=== PATIENT | female | born 1935 | race Caucasian/White ===

== ENCOUNTER 2016-08-07 07:54 | Day surgery (SDC) | payer MEDICARE, OTHER ==
[2016-08-07] MEDS ORDERED: Lactated Ringers 1,000 ML IV SCH (08:30)
[2016-08-07 08:38] VITALS: BP 102/67
== END 2016-08-07 09:55 | disposition home or self-care (01) ==
LOC: FB.SDS 07:54
PROVIDERS: ATTEND Surgery
DX: Z53.8 Procedure and treatment not carried out for other reasons (principal); D17.1 Benign lipomatous neoplasm of skin and subcutaneous tissue of trunk; I10 Essential (primary) hypertension; E03.9 Hypothyroidism, unspecified; J44.9 Chronic obstructive pulmonary disease, unspecified; K21.9 Gastro-esophageal reflux disease without esophagitis; Z98.890 Other specified postprocedural states; Z90.49 Acquired absence of other specified parts of digestive tract; Z90.710 Acquired absence of both cervix and uterus; Z88.0 Allergy status to penicillin; Z91.040 Latex allergy status; Z88.8 Allergy status to other drugs, medicaments and biological substances; Z87.891 Personal history of nicotine dependence
CPT/HCPCS: J7120

== ENCOUNTER 2019-12-29 09:08 | Emergency (ER) | payer MEDICARE, OTHER ==
[2019-12-29] MEDS ORDERED: Sodium Chloride 0.9% 10 ML Syringe FLUSH PRN (09:39)
--- NOTE | 2019-12-29 11:35 | CR ---
INDICATION: Hypotension. CHEST ONE VIEW: An AP erect portable view of the chest was obtained 12/29/19 and compared with 08/03/11 and 03/11/12. The heart did not appear grossly enlarged. The aorta is tortuous with calcification in the arch and descending portion. Bipolar pacemaker leads are now seen with the ventricular lead in the area of the apex of the right ventricle. Overlying EKG leads are noted. Vertebroplasty is noted at the lower thoracic spine. Somewhat flattened diaphragm leaves raise question of COPD along with hyperaeration. A definite active infiltrate or effusion was not identified. No evidence of CHF is seen. Bilateral total shoulder arthroplasties are noted. IMPRESSION: No acute process. MTDD
[2019-12-29] MEDS ORDERED: Acetaminophen 500 MG Tab PO ONE (11:46)
--- NOTE | 2019-12-29 11:51 | EDM.PDOC ---
ED HPI GENERAL MEDICAL PROBLEM - General Chief Complaint: General Stated Complaint: FAINTING SPELL Time Seen by Provider: 12/29/19 09:35 Source of Information: Reports: Patient History Limitations: Reports: No Limitations - History of Present Illness INITIAL COMMENTS - FREE TEXT/NARRATIVE: Patient presented to the ED because of an brief unresponsive episode after coming from the [facility]. She was also bradycardic at 50's. She denies feeling dizzy, no chest pain. All her symtoms resolved upon her arrival in the ED. She also c/o 1 week h/o of cough and cold and some sputum production. There is no fever or chills. - Related Data Allergies Allergy/AdvReac Type Severity Reaction Status Date / Time brimonidine tartrate Allergy REDNESS, Verified 08/26/14 08:20 [From Alphagan P] ITHCING, SKINNER latex Allergy SKIN Verified 08/26/14 08:20 IRRITATION moxifloxacin HCl Allergy Shortness Verified 08/26/14 08:20 [From Avelox] of Breath Penicillins Allergy Hives Verified 12/26/15 11:24 BANDAIDS Allergy SKIN Uncoded 08/25/14 12:33 IRRITATION CHLORTRIMAZOLE Allergy Other Uncoded 12/26/15 11:24 Home Meds: Home Meds FLUoxetine HCl [Fluoxetine HCl] 30 mg PO DAILY 04/19/13 [History] Levothyroxine Sodium 88 mcg PO DAILY 04/19/13 [History] Sucralfate [Carafate] 1 gm PO QID 04/19/13 [History] Acetaminophen [Tylenol] 650 mg PO Q4H PRN 08/25/14 [History] Albuterol [Proair HFA] 2 puff PO Q4H PRN 08/25/14 [History] Albuterol/Ipratropium [DuoNeb 3.0-0.5 MG/3 ML] 3 ml INH Q4H PRN 08/25/14 [History] Budesonide/Formoterol [Symbicort 160-4.5 MCG] 1 puff PO BID 08/25/14 [History] Cholecalciferol (Vitamin D3) [Vitamin D3] 1,000 unit PO DAILY 08/25/14 [History] Fluticasone Propionate [Flonase] 1 spray NASBOTH BID 08/25/14 [History] Multivitamin [Multivitamins] 1 each PO DAILY 08/25/14 [History] Omeprazole [Prilosec] 20 mg PO BID 08/25/14 [History] Ranitidine [Zantac] 150 mg PO BID 08/25/14 [History] Calcium Carbonate/Vitamin D3 [Calcium 600 + Vit D Tablet] 1 tab PO DAILY 12/26/15 [History] traMADol [Ultram] 50 mg PO Q6H PRN 08/06/16 [History] Hydrocodone/Acetaminophen [Hydrocodon-Acetaminophen 5-325] 1 ea PO ASDIRECTED PRN 08/07/16 [History] Azithromycin [Zithromax] 250 mg PO DAILY #6 tablet 12/29/19 [Rx] Past Medical History HEENT History: Reports: Allergic Rhinitis, Cataract, Glaucoma Cardiovascular History: Reports: Arrhythmia, Hypertension Other Cardiovascular History: CURRENTLY NOT ON MEDS FOR HYPERTENSION. STATES HAS NOT NEEDED SINCE LOST WT. Respiratory History: Reports: Asthma, COPD Gastrointestinal History: Reports: Chronic Constipation, Colon Polyp, GERD, Other (See Below) Other Gastrointestinal History: ABD PAIN RUQ, DYSPEPSIA, FLATULENCE, CONSTIPATION Genitourinary History: Reports: None HVAC INSTRUCTOR History: Reports: Other HVAC INSTRUCTOR History: IV PARA IV VAGINAL DELIVERIES Musculoskeletal History: Reports: Arthritis, Back Pain, Chronic, Fracture, Neck Pain, Chronic, Osteoporosis Other Musculoskeletal History: ARTHROPATHY, POLYMYALGIA RHEUMATICA, DJD SHOULDER, CERVICAL DDD, LEFT SHOULDER PAIN. LEFT GREAT TOENAIL SURGERY. Neurological History: Reports: Concussion, Headaches, Chronic, Head Trauma Psychiatric History: Reports: Depression Endocrine/Metabolic History: Reports: Hypothyroidism Hematologic History: Reports: None Immunologic History: Reports: None Oncologic (Cancer) History: Reports: None Dermatologic History: Reports: None - Infectious Disease History Infectious Disease History: Reports: Chicken Pox, Measles, Mumps, Rubella, Shingles - Past Surgical History Head Surgeries/Procedures: Reports: None HEENT Surgical History: Reports: Adenoidectomy, Cataract Surgery, Tonsillectomy Cardiovascular Surgical History: Reports: None Respiratory Surgical History: Reports: None Female Surgical History: Reports: Hysterectomy, Oophorectomy Endocrine Surgical History: Reports: None Neurological Surgical History: Reports: None, Lumbar Spine Musculoskeletal Surgical History: Reports: Arthroscopic Procedure, Carpal Tunnel, ORIF, Shoulder Surgery Oncologic Surgical History: Reports: None Dermatological Surgical History: Reports: None Social & Family History - Family History Family Medical History: Noncontributory - Tobacco Use Smoking Status *Q: Unknown Ever Smoked ED ROS GENERAL - Review of Systems Review Of Systems: See Below Constitutional: Reports: No Symptoms HEENT: Reports: No Symptoms Respiratory: Reports: No Symptoms Cardiovascular: Reports: No Symptoms Endocrine: Reports: No Symptoms GI/Abdominal: Reports: No Symptoms : Reports: No Symptoms Musculoskeletal: Reports: No Symptoms Skin: Reports: No Symptoms Neurological: Reports: No Symptoms Psychiatric: Reports: No Symptoms ED EXAM, GENERAL - Physical Exam Exam: See Below Exam Limited By: No Limitations General Appearance: Alert, No Apparent Distress Eye Exam: Bilateral Eye: PERRL Ears: Normal External Exam, Normal Canal Nose: Normal Inspection, Normal Mucosa Throat/Mouth: Normal Inspection, Normal Lips, Normal Teeth Head: Atraumatic Neck: Normal Inspection, Supple, Non-Tender, Full Range of Motion Respiratory/Chest: No Respiratory Distress, Lungs Clear, Normal Breath Sounds Cardiovascular: Normal Peripheral Pulses, Regular Rate, Rhythm GI/Abdominal: Normal Bowel Sounds, Soft, Non-Tender, No Organomegaly Rectal (Female) Exam: Normal Exam, Normal Rectal Tone Back Exam: Normal Inspection, Full Range of Motion Course - Vital Signs Text/Narrative:: Labs/EKG/CXR was discussed with the patient and verbalized full understanding Tylenol 1000 mg po x1 for headache and back pain Last Recorded V/S: Last Vital Signs Temp 36.6 C 12/29/19 09:33 Pulse 70 12/29/19 09:33 Resp 18 12/29/19 09:33 BP 150/86 H 12/29/19 09:33 Pulse Ox 100 12/29/19 09:33 - Orders/Labs/Meds Orders: Active Orders 24 hr Category Date Time Status EKG Documentation Completion [RC] ASDIRECTED Care 12/29/19 09:40 Active Sodium Chloride 0.9% [Saline Flush] Med 12/29/19 09:39 Active 10 ml FLUSH ASDIRECTED PRN Saline Lock Insert [OM.PC] Routine Oth 12/29/19 09:39 Ordered EKG 12 Lead [EK] Routine Ther 12/29/19 09:39 Ordered Medication Orders Sodium Chloride (Saline Flush) 10 ml FLUSH ASDIRECTED PRN PRN Reason: Keep Vein Open Labs: Laboratory Tests 12/29/19 12/29/19 12/29/19 Range/Units 10:35 10:35 10:35 WBC 3.9 L (4.5-12.0) X10-3/uL RBC 4.44 (3.23-5.20) x10(6)uL Hgb 13.8 (11.5-15.5) g/dL Hct 41.4 (30.0-51.3) % MCV 93.2 (80-96) fL MCH 31.0 (27.7-33.6) pg MCHC 33.3 (32.2-35.4) g/dL RDW 13.1 (11.5-15.5) % Plt Count 148 (125-369) X10(3)uL MPV 8.4 (7.4-10.4) fL Neut % (Auto) 73.7 (46-82) % Lymph % (Auto) 16.3 (13-37) % Ritchie % (Auto) 8.6 (4-12) % Eos % (Auto) 1 (1.0-5.0) % Baso % (Auto) 1 (0-2) % Neut # (Auto) 3.0 (1.6-8.3) # Lymph # (Auto) 0.6 (0.6-5.0) # Ritchie # (Auto) 0.3 (0.0-1.3) # Eos # (Auto) 0.0 (0.0-0.8) # Baso # (Auto) 0.0 (0.0-0.2) # Sodium 134 L (135-145) mmol/L Potassium 3.8 (3.5-5.3) mmol/L Chloride 101 (100-110) mmol/L Carbon Dioxide 26 (21-32) mmol/L BUN 14 (7-18) mg/dL Creatinine 1.1 H (0.55-1.02) mg/dL Est Cr Clr Drug Dosing TNP Estimated GFR (MDRD) 47 L (>60) BUN/Creatinine Ratio 12.7 (9-20) Glucose 94 (80-116) mg/dL Calcium 8.6 (8.6-10.2) mg/dL Total Bilirubin 1.1 (0.1-1.3) mg/dL AST 43 H (5-25) IU/L ALT 38 H (12-36) U/L Alkaline Phosphatase 122 H (56-112) IU/L Troponin I 10.4 (4.0-60.3) pg/mL NT-Pro-B Natriuret Pep 479 H (<=450) pg/mL Total Protein 6.9 (6.0-8.0) g/dL Albumin 3.2 (3.2-4.6) g/dL Globulin 3.7 g/dL Albumin/Globulin Ratio 0.9 Meds: Medications Generic Name Dose Route Start Last Admin Trade Name Freq PRN Reason Stop Dose Admin Sodium Chloride 10 ml 12/29/19 09:39 Saline Flush FLUSH ASDIRECTED PRN Keep Vein Open Departure - Departure Time of Disposition: 12:00 Disposition: Home, Self-Care 01 Condition: Good Clinical Impression: Vasovagal syncope, Acute bronchitis - Discharge Information Prescriptions: Azithromycin [Zithromax] 250 mg PO DAILY #6 tablet Referrals: PCP,None [Primary Care Provider] - Additional Instructions: please read discharge instructions on vasovagal syncope and acute bronchtis increase oral fluids tylenol 1000 mg every 8 hours as needed for pain z-mohini as directed follow up as needed Sepsis Event Note (ED) - Evaluation Sepsis Screening Result: No Definite Risk - Focused Exam Vital Signs: Vital Signs Temp Pulse Resp BP Pulse Ox 12/29/19 09:33 36.6 C 70 18 150/86 H 100 - My Orders Last 24 Hours: My Active Orders 12/29/19 09:39 Sodium Chloride 0.9% [Saline Flush] 10 ml FLUSH ASDIRECTED PRN Saline Lock Insert [OM.PC] Routine EKG 12 Lead [EK] Routine 12/29/19 09:40 EKG Documentation Completion [RC] ASDIRECTED - Assessment/Plan Last 24 Hours: My Active Orders 12/29/19 09:39 Sodium Chloride 0.9% [Saline Flush] 10 ml FLUSH ASDIRECTED PRN Saline Lock Insert [OM.PC] Routine EKG 12 Lead [EK] Routine 12/29/19 09:40 EKG Documentation Completion [RC] ASDIRECTED
[2019-12-29 12:32] VITALS: BP 146/78; PULSE 72
== END 2019-12-29 13:14 | disposition home or self-care (01) ==
LOC: FB.ED 09:08
DX: R55 Syncope and collapse (principal); J20.9 Acute bronchitis, unspecified; I10 Essential (primary) hypertension; J44.9 Chronic obstructive pulmonary disease, unspecified; K21.9 Gastro-esophageal reflux disease without esophagitis; F32.9 Major depressive disorder, single episode, unspecified; E03.9 Hypothyroidism, unspecified; Z88.8 Allergy status to other drugs, medicaments and biological substances; Z91.040 Latex allergy status; Z88.1 Allergy status to other antibiotic agents; Z88.0 Allergy status to penicillin; Z91.048 Other nonmedicinal substance allergy status; Z79.899 Other long term (current) drug therapy
CPT/HCPCS: 36415; 71045; 80053; 83880; 84484; 85025; 93005; 99285-25; A9270-GY

== ENCOUNTER 2020-02-02 03:47 | Emergency (ER) | payer MEDICARE, OTHER ==
[2020-02-02] MEDS ORDERED: LORazepam 2 MG/ML SDV IVPUSH ONE (03:59)
[2020-02-02] MEDS ORDERED: Acetaminophen 500 MG Tab PO ONE (03:59)
[2020-02-02] MEDS ORDERED: Sodium Chloride 0.9% 10 ML Syringe FLUSH PRN (04:05)
--- NOTE | 2020-02-02 04:09 | EDM.PDOC ---
ED HPI GENERAL MEDICAL PROBLEM - General Chief Complaint: General Stated Complaint: SHAKINESS Time Seen by Provider: 02/02/20 04:01 Source of Information: Reports: Patient, EMS, Old Records, RN History Limitations: Reports: Other (mild dementia) - History of Present Illness INITIAL COMMENTS - FREE TEXT/NARRATIVE: 84 yo female from the [facility] presents via EMS after she informed the staff that she was light-headed, SOB, shaky and had a TREJO. No tx or testing was performed before sending her via EMS. Says TREJO is mild. Has a pHx of asthma, but wheezing not reported. No fever or cough. Does have nasal congestion making it hard to nose breath. Onset: Today Onset Date: 02/02/20 Duration: Minutes: Location: Reports: Head (ache), Generalized (shaky). Denies: Chest, Abdomen Quality: Reports: Ache (head) Severity: Mild Improves with: Reports: None Worsens with: Reports: Other (unknown) Context: Reports: Other (See HPI) Associated Symptoms: Reports: Confusion (chronic, mild), Headaches, Shortness of Breath (mild). Denies: Chest Pain, Cough, Diaphoresis, Fever/Chills, Nausea/Vomiting, Seizure, Syncope Treatments HIGH PRESSURE KETTLE OPERATOR: Reports: Other (see below) (none) Back Pain Score (Numeric/FACES): 5 - Related Data Allergies Allergy/AdvReac Type Severity Reaction Status Date / Time brimonidine tartrate Allergy REDNESS, Verified 08/26/14 08:20 [From Alphagan P] ITHCING, SKINNER latex Allergy SKIN Verified 08/26/14 08:20 IRRITATION moxifloxacin HCl Allergy Shortness Verified 08/26/14 08:20 [From Avelox] of Breath Penicillins Allergy Hives Verified 12/26/15 11:24 BANDAIDS Allergy SKIN Uncoded 08/25/14 12:33 IRRITATION CHLORTRIMAZOLE Allergy Other Uncoded 12/26/15 11:24 Home Meds: Home Meds Acetaminophen [Tylenol] 650 mg PO Q4H PRN 08/25/14 [History] Amiodarone [Cordarone] 100 mg PO DAILY 02/02/20 [History] Bisacodyl [Laxative Suppository] 1 supp RECTAL ASDIRECTED PRN 02/02/20 [History] Famotidine 20 mg PO BEDTIME 02/02/20 [History] Levothyroxine Sodium [Synthroid] 75 mcg PO DAILY 02/02/20 [History] Loperamide [Imodium] 2 mg PO ASDIRECTED PRN 02/02/20 [History] Mag Hydrox/Aluminum Hyd/Simeth [Mylanta Maximum Strength Liq] 10 ml PO ASDIRECTED PRN 02/02/20 [History] Magnesium Hydroxide [Milk of Magnesia] 30 ml PO ASDIRECTED PRN 02/02/20 [History] Rivaroxaban [Xarelto] 15 mg PO DAILY 02/02/20 [History] atorvaSTATin Calcium [Atorvastatin Calcium] 80 mg PO BEDTIME 02/02/20 [History] guaiFENesin [Robitussin] 10 ml PO Q4H PRN 02/02/20 [History] lisinopriL [Lisinopril] 20 mg PO DAILY #30 tablet 02/02/20 [Rx] Past Medical History HEENT History: Reports: Allergic Rhinitis, Cataract, Glaucoma Cardiovascular History: Reports: Arrhythmia, Hypertension Other Cardiovascular History: CURRENTLY NOT ON MEDS FOR HYPERTENSION. STATES HAS NOT NEEDED SINCE LOST WT. Respiratory History: Reports: Asthma, COPD Gastrointestinal History: Reports: Chronic Constipation, Colon Polyp, GERD, Other (See Below) Other Gastrointestinal History: ABD PAIN RUQ, DYSPEPSIA, FLATULENCE, CONSTIPATION Genitourinary History: Reports: None FIELD SERVICE COORDINATOR History: Reports: Other FIELD SERVICE COORDINATOR History: IV PARA IV VAGINAL DELIVERIES Musculoskeletal History: Reports: Arthritis, Back Pain, Chronic, Fracture, Neck Pain, Chronic, Osteoporosis Other Musculoskeletal History: ARTHROPATHY, POLYMYALGIA RHEUMATICA, DJD SHOULDER, CERVICAL DDD, LEFT SHOULDER PAIN. LEFT GREAT TOENAIL SURGERY. Neurological History: Reports: Concussion, Headaches, Chronic, Head Trauma Psychiatric History: Reports: Depression Endocrine/Metabolic History: Reports: Hypothyroidism Hematologic History: Reports: None Immunologic History: Reports: None Oncologic (Cancer) History: Reports: None Dermatologic History: Reports: None - Infectious Disease History Infectious Disease History: Reports: Chicken Pox, Measles, Mumps, Rubella, Shingles - Past Surgical History Head Surgeries/Procedures: Reports: None HEENT Surgical History: Reports: Adenoidectomy, Cataract Surgery, Tonsillectomy Cardiovascular Surgical History: Reports: None Respiratory Surgical History: Reports: None Female Surgical History: Reports: Hysterectomy, Oophorectomy Endocrine Surgical History: Reports: None Neurological Surgical History: Reports: None, Lumbar Spine Musculoskeletal Surgical History: Reports: Arthroscopic Procedure, Carpal Tunnel, ORIF, Shoulder Surgery Oncologic Surgical History: Reports: None Dermatological Surgical History: Reports: None Social & Family History - Family History Family Medical History: Noncontributory ED ROS GENERAL - Review of Systems Review Of Systems: See Below Constitutional: Reports: No Symptoms HEENT: Reports: No Symptoms Respiratory: Reports: Shortness of Breath (mild). Denies: Wheezing, Pleuritic Chest Pain, Cough, Sputum, Hemoptysis Cardiovascular: Reports: Lightheadedness Endocrine: Reports: No Symptoms GI/Abdominal: Reports: No Symptoms : Reports: No Symptoms Musculoskeletal: Reports: No Symptoms Skin: Reports: No Symptoms Neurological: Reports: Confusion (mild, chronic), Headache (mild), Tremors (feels shaky) Psychiatric: Reports: Anxiety (mild), Confusion (mild, chronic) ED EXAM, GENERAL - Physical Exam Exam: See Below Exam Limited By: No Limitations General Appearance: Alert, WD/WN, No Apparent Distress Eye Exam: Bilateral Eye: Normal Inspection Ears: Normal External Exam, Normal Canal, Hearing Grossly Normal, Normal TMs Ear Exam: Bilateral Ear: Auricle Normal, Canal Normal Nose: Normal Inspection, No Blood Throat/Mouth: Normal Inspection, Normal Lips, Normal Oropharynx, Normal Voice, No Airway Compromise Head: Atraumatic, Normocephalic Neck: Normal Inspection Respiratory/Chest: No Respiratory Distress, Lungs Clear, Normal Breath Sounds, No Accessory Muscle Use Cardiovascular: Regular Rate, Rhythm, No Edema GI/Abdominal: Normal Bowel Sounds, Soft, Non-Tender, No Distention Extremities: Normal Inspection, Normal Range of Motion, Non-Tender, No Pedal Edema Neurological: Alert, CN II-XII Intact, Normal Cognition, No Motor/Sensory Deficits, Confused (minimally) Psychiatric: Normal Affect, Normal Mood Skin Exam: Warm, Dry, Intact, Normal Color, No Rash Course - Vital Signs Last Recorded V/S: Last Vital Signs Temp 36.6 C 02/02/20 03:50 Pulse 61 02/02/20 03:50 Resp 18 02/02/20 03:50 BP 184/77 H 02/02/20 05:18 Pulse Ox 100 02/02/20 03:50 - Orders/Labs/Meds Orders: Active Orders 24 hr Category Date Time Status Sodium Chloride 0.9% [Saline Flush] Med 02/02/20 04:05 Active 10 ml FLUSH ASDIRECTED PRN Medication Orders Sodium Chloride (Saline Flush) 10 ml FLUSH ASDIRECTED PRN PRN Reason: IV Use Last Admin: 02/02/20 04:05 Dose: 10 ml Documented by: BEKAH Labs: Laboratory Tests 02/02/20 02/02/20 Range/Units 04:55 04:55 Sodium 133 L (135-145) mmol/L Potassium 3.6 (3.5-5.3) mmol/L Chloride 100 (100-110) mmol/L Carbon Dioxide 26 (21-32) mmol/L BUN 14 (7-18) mg/dL Creatinine 0.9 (0.55-1.02) mg/dL Est Cr Clr Drug Dosing 34.02 mL/min Estimated GFR (MDRD) 60 (>60) BUN/Creatinine Ratio 15.6 (9-20) Glucose 94 (80-116) mg/dL Calcium 8.5 L (8.6-10.2) mg/dL Troponin I 9.0 (4.0-60.3) pg/mL Meds: Medications Generic Name Dose Route Start Last Admin Trade Name Freq PRN Reason Stop Dose Admin Sodium Chloride 10 ml 02/02/20 04:05 02/02/20 04:05 Saline Flush FLUSH 10 ml ASDIRECTED PRN Administration IV Use Discontinued Medications Generic Name Dose Route Start Last Admin Trade Name Freq PRN Reason Stop Dose Admin Acetaminophen 1,000 mg 02/02/20 03:59 02/02/20 04:05 Tylenol Extra Strength PO 02/02/20 04:00 1,000 mg ONETIME ONE Administration Lisinopril 20 mg 02/02/20 05:11 02/02/20 05:18 Prinivil PO 02/02/20 05:12 20 mg ONETIME ONE Administration Lorazepam 0.5 mg 02/02/20 03:59 02/02/20 04:05 Ativan IVPUSH 02/02/20 04:00 0.5 mg ONETIME ONE Administration Oxymetazoline HCl 0.5 ml 02/02/20 04:36 02/02/20 04:58 Afrin Original 0.05% Nasal [place] ASHLY 02/02/20 04:37 2 spray ONETIME ONE Administration - Re-Assessments/Exams Free Text/Narrative Re-Assessment/Exam: 02/02/20 05:20 TREJO gone after acetaminophen. Departure - Departure Time of Disposition: 05:30 Disposition: Home, Self-Care 01 Condition: Fair Clinical Impression: Nasal congestion HTN (hypertension) Qualifiers: Hypertension type: unspecified Qualified Code(s): I10 - Essential (primary) hypertension - Discharge Information *PRESCRIPTION DRUG MONITORING PROGRAM REVIEWED*: Not Applicable *COPY OF PRESCRIPTION DRUG MONITORING REPORT IN PATIENT ARVIN: Not Applicable Instructions: Hypertension, Adult, [id number] Referrals: PCP,None [Primary Care Provider] - Forms: ED Department Discharge Additional Instructions: Give Lisinopril 20 mg every morning starting 02/02. Give oxymetolazone nasal spray in each nostril every 12 hrs for up to 3 days for nasal congestion. Give acetaminophen as needed for headache( 1000 mg every 6 hrs). Follow up with her provider within the week for a blood pressure recheck. Sepsis Event Note (ED) - Focused Exam Vital Signs: Vital Signs Temp Pulse Resp BP BP Pulse Ox 02/02/20 05:18 184/77 H 02/02/20 03:50 36.6 C 61 18 196/67 H 100 - My Orders Last 24 Hours: My Active Orders 02/02/20 04:05 Sodium Chloride 0.9% [Saline Flush] 10 ml FLUSH ASDIRECTED PRN - Assessment/Plan Last 24 Hours: My Active Orders 02/02/20 04:05 Sodium Chloride 0.9% [Saline Flush] 10 ml FLUSH ASDIRECTED PRN
[2020-02-02 04:22] VITALS: PULSE 61
[2020-02-02] MEDS ORDERED: Oxymetazoline 0.05% Nasal Spray 30 ML Bottle NAS ONE (04:34)
[2020-02-02] MEDS ORDERED: Oxymetazoline 0.05% Nasal Spray 15 ML Bottle NAS ONE (04:36)
[2020-02-02] MEDS ORDERED: Lisinopril 10 MG Tab PO ONE (05:11)
[2020-02-02 05:19] VITALS: BP 184/77
== END 2020-02-02 05:45 | disposition home or self-care (01) ==
LOC: FB.ED 03:47
DX: R09.81 Nasal congestion (principal); I10 Essential (primary) hypertension; J44.9 Chronic obstructive pulmonary disease, unspecified; K21.9 Gastro-esophageal reflux disease without esophagitis; F32.9 Major depressive disorder, single episode, unspecified; E03.9 Hypothyroidism, unspecified; Z79.01 Long term (current) use of anticoagulants; Z91.040 Latex allergy status; Z88.1 Allergy status to other antibiotic agents; Z88.0 Allergy status to penicillin; Z88.8 Allergy status to other drugs, medicaments and biological substances; Z79.899 Other long term (current) drug therapy; Z91.048 Other nonmedicinal substance allergy status
CPT/HCPCS: 36415; 80048; 84484; 96374; 99284; A9270; J2060; 99283

== ENCOUNTER 2020-11-11 18:22 | Emergency (ER) | payer MEDICARE, OTHER ==
--- NOTE | 2020-11-11 18:49 | EDM.PDOC ---
<Claudia Huang - Last Filed: 11/11/20 18:44> ED HPI GENERAL MEDICAL PROBLEM - General Stated Complaint: SOB Time Seen by Provider: 11/11/20 18:30 Source of Information: Reports: [facility] Records - History of Present Illness INITIAL COMMENTS - FREE TEXT/NARRATIVE: pt comes from assisted living , with confusion, per EMS , there was concerns this afternoon by staff at assisted living staff for increased confusion and elevated SBP/ no other concerns were reported, pt has dementia on her records , she appears comfortable here and denies any pain / acute resp complaints or any specific concerns, she is alert and follow simple commands , oriented only to self. - Related Data Allergies Allergy/AdvReac Type Severity Reaction Status Date / Time brimonidine tartrate Allergy REDNESS, Verified 08/26/14 08:20 [From Alphagan P] ITHCING, SKINNER latex Allergy SKIN Verified 08/26/14 08:20 IRRITATION moxifloxacin HCl Allergy Shortness Verified 08/26/14 08:20 [From Avelox] of Breath Penicillins Allergy Hives Verified 12/26/15 11:24 BANDAIDS Allergy SKIN Uncoded 08/25/14 12:33 IRRITATION CHLORTRIMAZOLE Allergy Other Uncoded 12/26/15 11:24 Home Meds: Home Meds Acetaminophen [Tylenol] 650 mg PO Q4H PRN 08/25/14 [History] Amiodarone [Cordarone] 100 mg PO DAILY 02/02/20 [History] Bisacodyl [Laxative Suppository] 1 supp RECTAL ASDIRECTED PRN 02/02/20 [History] Famotidine 20 mg PO BEDTIME 02/02/20 [History] Levothyroxine Sodium [Synthroid] 75 mcg PO DAILY 02/02/20 [History] Loperamide [Imodium] 2 mg PO ASDIRECTED PRN 02/02/20 [History] Mag Hydrox/Aluminum Hyd/Simeth [Mylanta Maximum Strength Liq] 10 ml PO ASDIRECTED PRN 02/02/20 [History] Magnesium Hydroxide [Milk of Magnesia] 30 ml PO ASDIRECTED PRN 02/02/20 [History] Rivaroxaban [Xarelto] 15 mg PO DAILY 02/02/20 [History] atorvaSTATin Calcium [Atorvastatin Calcium] 80 mg PO BEDTIME 02/02/20 [History] guaiFENesin [Robitussin] 10 ml PO Q4H PRN 02/02/20 [History] lisinopriL [Lisinopril] 20 mg PO DAILY #30 tablet 02/02/20 [Rx] Past Medical History HEENT History: Reports: Allergic Rhinitis, Cataract, Glaucoma Cardiovascular History: Reports: Arrhythmia, Hypertension Other Cardiovascular History: CURRENTLY NOT ON MEDS FOR HYPERTENSION. STATES HAS NOT NEEDED SINCE LOST WT. Respiratory History: Reports: Asthma, COPD Gastrointestinal History: Reports: Chronic Constipation, Colon Polyp, GERD, Other (See Below) Other Gastrointestinal History: ABD PAIN RUQ, DYSPEPSIA, FLATULENCE, CONSTIPATION Genitourinary History: Reports: None COPY OPERATOR History: Reports: Other COPY OPERATOR History: IV PARA IV VAGINAL DELIVERIES Musculoskeletal History: Reports: Arthritis, Back Pain, Chronic, Fracture, Neck Pain, Chronic, Osteoporosis Other Musculoskeletal History: ARTHROPATHY, POLYMYALGIA RHEUMATICA, DJD SHOULDER, CERVICAL DDD, LEFT SHOULDER PAIN. LEFT GREAT TOENAIL SURGERY. Neurological History: Reports: Concussion, Headaches, Chronic, Head Trauma Psychiatric History: Reports: Depression Endocrine/Metabolic History: Reports: Hypothyroidism Hematologic History: Reports: None Immunologic History: Reports: None Oncologic (Cancer) History: Reports: None Dermatologic History: Reports: None - Infectious Disease History Infectious Disease History: Reports: Chicken Pox, Measles, Mumps, Rubella, Shingles - Past Surgical History Head Surgeries/Procedures: Reports: None HEENT Surgical History: Reports: Adenoidectomy, Cataract Surgery, Tonsillectomy Cardiovascular Surgical History: Reports: None Respiratory Surgical History: Reports: None Female Surgical History: Reports: Hysterectomy, Oophorectomy Endocrine Surgical History: Reports: None Neurological Surgical History: Reports: None, Lumbar Spine Musculoskeletal Surgical History: Reports: Arthroscopic Procedure, Carpal Tunnel, ORIF, Shoulder Surgery Oncologic Surgical History: Reports: None Dermatological Surgical History: Reports: None Social & Family History - Family History Family Medical History: No Pertinent Family History - Caffeine Use Caffeine Use: Reports: Soda ED ROS GENERAL - Review of Systems Review Of Systems: Unable To Obtain Reason Not Obtained: dementia Constitutional: Reports: No Symptoms Respiratory: Denies: Shortness of Breath Cardiovascular: Denies: Chest Pain GI/Abdominal: Denies: Abdominal Pain ED EXAM, GENERAL - Physical Exam Exam: See Below Exam Limited By: Altered Mental Status General Appearance: Alert Eye Exam: Bilateral Eye: Normal Inspection Nose: Normal Inspection Throat/Mouth: Normal Inspection, Normal Oropharynx Head: Atraumatic, Normocephalic Neck: Normal Inspection, Supple, Non-Tender, Full Range of Motion Respiratory/Chest: No Respiratory Distress, Lungs Clear, Normal Breath Sounds Cardiovascular: Normal Peripheral Pulses, Irregularly Irregular GI/Abdominal: Normal Bowel Sounds, Soft, Non-Tender Back Exam: Normal Inspection Extremities: Normal Inspection. No: Pedal Edema Neurological: Alert, No Motor/Sensory Deficits Psychiatric: Flat Affect Skin Exam: Warm, No Rash Course - Vital Signs Text/Narrative:: pt care will be handed to Dr Keller at time of shift change at 7pm , pending labs at this point are CBC , UA, CMP, EKG /Covid . pt BP is at 199 systolic, 0.1 mg Catapres was provided. Departure - Departure Disposition: DC[facility] Clinical Impression: Hypertension, uncontrolled, Elevated liver function tests Dementia Qualifiers: Dementia type: unspecified type Dementia behavioral disturbance: without behavioral disturbance Qualified Code(s): F03.90 - Unspecified dementia without behavioral disturbance - Discharge Information Instructions: Hypertension, Adult, [id number], Dementia, [id number] Referrals: PCP,None [Primary Care Provider] - Additional Instructions: All of the patient's blood tests were reassuring except for some elevated liver function tests. She also appeared to be somewhat dehydrated and I feel that this may be due to some mild heat exposure. Her urine test showed no evidence of infection. Her chest x-ray was normal. The CAT scan of her head showed no bleeding and no fractures. The CAT scan of her abdomen and pelvis showed no acute problem. She did appear to be somewhat constipated discussing this with Lisset, the patient's daughter and power of workers compensation defense attorney, the patient apparently has had episodes like this in the past and they were related to her blood pressure being difficult to control and orthostatic hypotension. There is really nothing to do about this except for trying to make sure that she starts slowly and is also able to spend time sitting with her legs elevated. She should avoid any heat exposure for the next few days. You should make sure she drinks plenty of fluids. You can contact her primary provider if she has nothing for constipation. Back to the emergency department for unrelenting vomiting, high fever or any other concerning signs or symptoms. <Peter Keller Last Filed: 11/12/20 01:20> ED HPI GENERAL MEDICAL PROBLEM - General Source of Information: Reports: Patient, [facility] Records, Provider History Limitations: Reports: Other (Patient confused but this is her baseline.) Course - Vital Signs Last Recorded V/S: Last Vital Signs Temp 36.6 C 11/11/20 18:22 Pulse 92 11/12/20 00:09 Resp 14 11/12/20 00:09 BP 168/87 H 11/12/20 00:09 Pulse Ox 98 11/12/20 00:09 - Orders/Labs/Meds Orders: Active Orders 24 hr Category Date Time Status EKG Documentation Completion [RC] ASDIRECTED Care 11/11/20 18:55 Active Urinary Catheter Assessment [RC] QSHIFT Care 11/11/20 19:34 Active Urinary Catheter Insertion [Insert Urinary Catheter] [ Care 11/11/20 19:45 Ordered OM.PC] Q24H Abdomen Pelvis w Cont [CT] Stat Exams 11/11/20 21:10 Taken Chest 1V Frontal [CR] Stat Exams 11/11/20 19:53 Taken Head wo Cont [CT] Stat Exams 11/11/20 19:53 Taken Sodium Chloride 0.9% [Saline Flush] Med 11/11/20 21:10 Active 10 ml FLUSH ASDIRECTED PRN Peripheral IV Insertion Adult [OM.PC] Routine Oth 11/11/20 21:10 Ordered EKG 12 Lead [EK] Routine Ther 11/11/20 18:55 Ordered Medication Orders Sodium Chloride (Sodium Chloride 0.9% 10 Ml Syringe) 10 ml FLUSH ASDIRECTED PRN PRN Reason: Keep Vein Open Last Admin: 11/11/20 23:11 Dose: 10 ml Documented by: GAURAV Labs: Laboratory Tests 11/11/20 11/11/20 11/11/20 Range/Units 19:15 19:15 19:15 WBC 4.1 (3.0-10.3) x10-3/uL RBC 3.65 (3.60-5.20) x10(6)uL Hgb 12.0 (11.4-15.5) g/dL Hct 35.7 (34.2-48.2) % MCV 97.9 (76.7-100.5) fL MCH 33.0 (23.9-33.9) pg MCHC 33.7 (31.9-34.8) g/dL RDW 13.8 (12.3-16.5) % Plt Count 178 (151-488) x10(3)uL MPV 8.9 (7.1-12.4) fL Neut % (Auto) 68.8 (30.8-76.2) % Lymph % (Auto) 16.8 L (18.4-52.1) % Hodgeman % (Auto) 12.1 (4.4-15.7) % Eos % (Auto) 1.5 (0.6-8.1) % Baso % (Auto) 0.8 (0.2-1.5) % Neut # (Auto) 2.8 (1.5-6.3) x10-3/uL Lymph # (Auto) 0.7 L (1.0-4.4) x10-3/uL Hodgeman # (Auto) 0.5 (0.3-1.0) x10-3/uL Eos # (Auto) 0.1 (0.0-0.8) x10-3/uL Baso # (Auto) 0.0 (0.0-0.1) x10-3/uL Sodium 131 L (135-145) mmol/L Potassium 4.0 (3.5-5.3) mmol/L Chloride 95 L D (100-110) mmol/L Carbon Dioxide 23 (21-32) mmol/L BUN 21 H (7-18) mg/dL Creatinine 1.0 (0.55-1.02) mg/dL Est Cr Clr Drug Dosing 30.08 mL/min Estimated GFR (MDRD) 53 L (>60) BUN/Creatinine Ratio 21.0 H (9-20) Glucose 94 (80-116) mg/dL Calcium 7.8 L (8.6-10.2) mg/dL Magnesium (1.8-2.5) mg/dL Total Bilirubin 0.6 (0.1-1.3) mg/dL AST 87 H D (5-25) IU/L ALT 106 H D (12-36) U/L Alkaline Phosphatase 494 H (56-112) IU/L Troponin I 13.0 (4.0-60.3) pg/mL Total Protein 7.4 (6.0-8.0) g/dL Albumin 3.0 L (3.2-4.6) g/dL Globulin 4.4 g/dL Albumin/Globulin Ratio 0.7 Urine Color (YELLOW) Urine Appearance (CLEAR) Urine pH (5.0-6.5) Ur Specific Dunlo (1.010-1.025) Urine Protein (NEGATIVE) mg/dL Urine Glucose (UA) (NORMAL) mg/dL Urine Ketones (NEGATIVE) mg/dL Urine Occult Blood (NEGATIVE) Urine Nitrite (NEGATIVE) Urine Bilirubin (NEGATIVE) Urine Urobilinogen (NEGATIVE) mg/dL Ur Leukocyte Esterase (NEGATIVE) Urine RBC (0-5) Urine WBC (0-5) Ur Squamous Epith Cells (NS,R,O) Urine Bacteria (NS) SARS-CoV-2 RNA (KEYON) (NEGATIVE) 11/11/20 11/11/20 11/11/20 Range/Units 19:15 19:23 20:02 WBC (3.0-10.3) x10-3/uL RBC (3.60-5.20) x10(6)uL Hgb (11.4-15.5) g/dL Hct (34.2-48.2) % MCV (76.7-100.5) fL MCH (23.9-33.9) pg MCHC (31.9-34.8) g/dL RDW (12.3-16.5) % Plt Count (151-488) x10(3)uL MPV (7.1-12.4) fL Neut % (Auto) (30.8-76.2) % Lymph % (Auto) (18.4-52.1) % Hodgeman % (Auto) (4.4-15.7) % Eos % (Auto) (0.6-8.1) % Baso % (Auto) (0.2-1.5) % Neut # (Auto) (1.5-6.3) x10-3/uL Lymph # (Auto) (1.0-4.4) x10-3/uL Hodgeman # (Auto) (0.3-1.0) x10-3/uL Eos # (Auto) (0.0-0.8) x10-3/uL Baso # (Auto) (0.0-0.1) x10-3/uL Sodium (135-145) mmol/L Potassium (3.5-5.3) mmol/L Chloride (100-110) mmol/L Carbon Dioxide (21-32) mmol/L BUN (7-18) mg/dL Creatinine (0.55-1.02) mg/dL Est Cr Clr Drug Dosing mL/min Estimated GFR (MDRD) (>60) BUN/Creatinine Ratio (9-20) Glucose (80-116) mg/dL Calcium (8.6-10.2) mg/dL Magnesium 1.9 (1.8-2.5) mg/dL Total Bilirubin (0.1-1.3) mg/dL AST (5-25) IU/L ALT (12-36) U/L Alkaline Phosphatase (56-112) IU/L Troponin I (4.0-60.3) pg/mL Total Protein (6.0-8.0) g/dL Albumin (3.2-4.6) g/dL Globulin g/dL Albumin/Globulin Ratio Urine Color Yellow (YELLOW) Urine Appearance Clear (CLEAR) Urine pH 8.0 H (5.0-6.5) Ur Specific Dunlo 1.010 (1.010-1.025) Urine Protein Negative (NEGATIVE) mg/dL Urine Glucose (UA) Normal (NORMAL) mg/dL Urine Ketones Negative (NEGATIVE) mg/dL Urine Occult Blood Negative (NEGATIVE) Urine Nitrite Negative (NEGATIVE) Urine Bilirubin Negative (NEGATIVE) Urine Urobilinogen Normal (NEGATIVE) mg/dL Ur Leukocyte Esterase Negative (NEGATIVE) Urine RBC 0-5 (0-5) Urine WBC 0-5 (0-5) Ur Squamous Epith Cells Occasional (NS,R,O) Urine Bacteria Rare H (NS) SARS-CoV-2 RNA (KEYON) Negative (NEGATIVE) Meds: Medications Generic Name Dose Route Start Last Admin Trade Name Freq PRN Reason Stop Dose Admin Sodium Chloride 10 ml 11/11/20 21:10 11/11/20 23:11 Sodium Chloride 0.9% 10 Ml Syringe FLUSH 10 ml ASDIRECTED PRN Administration Keep Vein Open Discontinued Medications Generic Name Dose Route Start Last Admin Trade Name Freq PRN Reason Stop Dose Admin Clonidine HCl 0.1 mg 11/11/20 18:55 11/11/20 19:13 Clonidine 0.1 Mg Tab PO 11/11/20 18:56 0.1 mg ONETIME ONE Administration Sodium Chloride 500 mls @ 999 mls/hr 11/11/20 21:12 11/11/20 22:40 Normal Saline IV 11/11/20 21:42 999 mls/hr .BOLUS ONE Administration Iopamidol 75 ml 11/11/20 21:27 11/11/20 22:30 Iopamidol 755 Mg/Ml 75 Ml Bottle IV 11/11/20 21:28 72 ml ASDIRECTED ONE Administration - Re-Assessments/Exams Free Text/Narrative Re-Assessment/Exam: 11/11/20 19:00: Care of patient turned over to me at this time. She is awake and alert and appears nontoxic at this time. Blood work is pending. I have asked the nurses to do a catheterized specimen for the urine. The nursing staff did confirm that the patient is a DNR/DNI. 11/11/20 21:08: Patient's chest x-ray is normal. The CT scan of her head shows no acute abnormality. Her rapid covid test was negative. Her blood tests were also reassuring except she did have some elevated liver function tests. Her bilirubin was normal. Evaluation of the patient this time shows that she is awake and alert. She still is somewhat hypertensive but her O2 saturations are 95% on room air and her pulse rate is in the 90s. She appears in no respiratory distress. She does not appear to be in any distress at all. On exam she does have some pain in her right upper quadrant. Because of this pain in her right upper quadrant and the elevated both kidneys, I will send her over for CT of her abdomen and pelvis with IV contrast. I will also give the patient normal saline 500 mL bolus. 11/12/20 01:00: CT scan of her abdomen and pelvis showed no acute abnormality. Specifically, the liver appeared to be normal and it appeared that she was status post cholecystectomy. She has remained awake and alert and hemodynamically and respiratory stable. I did call and discuss all of this with Lisset, her daughter and power of workers compensation defense attorney, and Lisset reports that patient had multiple episodes like this when she was living with her in [place] and she had had multiple workups which really only pointed toward her having orthostatic hypotension. Her workup today really points toward no problem that needs intervention at this time. She appears to be stable to go back to the [facility]. The patient's daughter, iLsset, is in agreement with the plan for discharge back to the [facility]. Departure - Departure Time of Disposition: 01:15 Condition: Fair (Stable) Sepsis Event Note (ED) - Focused Exam Vital Signs: Vital Signs Temp Pulse Resp BP BP Pulse Ox 11/12/20 00:09 92 14 168/87 H 98 11/11/20 21:06 100 14 171/103 H 98 11/11/20 19:13 184/95 H 11/11/20 18:22 36.6 C 60 20 199/82 H 99 - My Orders Last 24 Hours: My Active Orders 11/11/20 19:34 Urinary Catheter Assessment [RC] QSHIFT 11/11/20 19:45 Urinary Catheter Insertion [Insert Urinary Catheter] [OM.PC] Q24H 11/11/20 19:53 Chest 1V Frontal [CR] Stat Head wo Cont [CT] Stat 11/11/20 21:10 Abdomen Pelvis w Cont [CT] Stat Sodium Chloride 0.9% [Saline Flush] 10 ml FLUSH ASDIRECTED PRN Peripheral IV Insertion Adult [OM.PC] Routine - Assessment/Plan Last 24 Hours: My Active Orders 11/11/20 19:34 Urinary Catheter Assessment [RC] QSHIFT 11/11/20 19:45 Urinary Catheter Insertion [Insert Urinary Catheter] [OM.PC] Q24H 11/11/20 19:53 Chest 1V Frontal [CR] Stat Head wo Cont [CT] Stat 11/11/20 21:10 Abdomen Pelvis w Cont [CT] Stat Sodium Chloride 0.9% [Saline Flush] 10 ml FLUSH ASDIRECTED PRN Peripheral IV Insertion Adult [OM.PC] Routine
[2020-11-11] MEDS ORDERED: cloNIDine 0.1 MG Tab PO ONE (18:55)
[2020-11-11] MEDS ORDERED: Sodium Chloride 0.9% 10 ML Syringe FLUSH PRN (21:10)
[2020-11-11] MEDS ORDERED: Sodium Chloride 0.9% 500 ML IV ONE (21:12)
[2020-11-11] MEDS ORDERED: Iopamidol 755 Mg/ML 75 ML Bottle IV ONE (21:27)
[2020-11-12 00:10] VITALS: BP 168/87; PULSE 92
--- NOTE | 2020-11-13 11:04 | CR ---
INDICATION: Shortness of breath. CHEST ONE VIEW: AP portable upright view of the chest 11/11/20 was compared with 12/29/19 and 03/11/12. Increased flattening of diaphragm leaves with hyperaeration suggests progressive COPD and/or exacerbation of COPD. 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 Bipolar pacemaker leads are unchanged in position with normal heart size and shape. Aorta is tortuous with calcification in the arch and descending portion. Overlying EKG leads are noted. No active infiltrate or effusion was identified with markings similar to the previous study. 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 IMPRESSION: 1. No definite acute process but difficult to exclude exacerbation of COPD versus progressive COPD. 2. ASD aorta. 3. Bipolar pacemaker leads stable in position. MTDD
== END 2020-11-12 01:45 ==
LOC: FB.ED 18:22
DX: F03.90 Unspecified dementia, unspecified severity, without behavioral disturbance, psychotic disturbance, mood disturbance, and anxiety (principal); I10 Essential (primary) hypertension; R79.89 Other specified abnormal findings of blood chemistry; J44.9 Chronic obstructive pulmonary disease, unspecified; E03.9 Hypothyroidism, unspecified; Z79.899 Other long term (current) drug therapy; Z79.01 Long term (current) use of anticoagulants; Z88.0 Allergy status to penicillin; Z91.040 Latex allergy status; Z88.1 Allergy status to other antibiotic agents; Z88.8 Allergy status to other drugs, medicaments and biological substances
CPT/HCPCS: 36415; 70450; 71045; 74177; 80053; 81001; 83735; 84484; 85025; 93005; 99285; A9270; J7040; Q9967; U0002

== ENCOUNTER 2020-12-07 09:38 | Emergency (ER) | payer MEDICARE, OTHER ==
[2020-12-07 10:01] VITALS: BP 140/86; PULSE 110
--- NOTE | 2020-12-07 11:05 | EDM.PDOC ---
ED HPI GENERAL MEDICAL PROBLEM - General Chief Complaint: General Time Seen by Provider: 12/07/20 09:45 Source of Information: Reports: Patient History Limitations: Reports: No Limitations - History of Present Illness INITIAL COMMENTS - FREE TEXT/NARRATIVE: Patient presented to the ED because of lethargy and hypotension. He VS in the ED was normal upon triage. She is asymptomatic and is wondering why she is in the ED. - Related Data Allergies Allergy/AdvReac Type Severity Reaction Status Date / Time brimonidine tartrate Allergy REDNESS, Verified 08/26/14 08:20 [From Alphagan P] ITHCING, SKINNER latex Allergy SKIN Verified 08/26/14 08:20 IRRITATION moxifloxacin HCl Allergy Shortness Verified 08/26/14 08:20 [From Avelox] of Breath Penicillins Allergy Hives Verified 12/26/15 11:24 BANDAIDS Allergy SKIN Uncoded 08/25/14 12:33 IRRITATION CHLORTRIMAZOLE Allergy Other Uncoded 12/26/15 11:24 Home Meds: Home Meds Acetaminophen [Tylenol] 650 mg PO Q4H PRN 08/25/14 [History] Amiodarone [Cordarone] 100 mg PO DAILY 02/02/20 [History] Bisacodyl [Laxative Suppository] 1 supp RECTAL ASDIRECTED PRN 02/02/20 [History] Famotidine 20 mg PO BEDTIME 02/02/20 [History] Levothyroxine Sodium [Synthroid] 75 mcg PO DAILY 02/02/20 [History] Loperamide [Imodium] 2 mg PO ASDIRECTED PRN 02/02/20 [History] Mag Hydrox/Aluminum Hyd/Simeth [Mylanta Maximum Strength Liq] 10 ml PO ASDIRECTED PRN 02/02/20 [History] Magnesium Hydroxide [Milk of Magnesia] 30 ml PO ASDIRECTED PRN 02/02/20 [History] Rivaroxaban [Xarelto] 15 mg PO DAILY 02/02/20 [History] atorvaSTATin Calcium [Atorvastatin Calcium] 80 mg PO BEDTIME 02/02/20 [History] guaiFENesin [Robitussin] 10 ml PO Q4H PRN 02/02/20 [History] Carbamide Peroxide [Debrox 6.5% Otic Soln] 5 drop OT BID 12/07/20 [History] Latanoprost/Pf [Latanoprost 0.005% Eye Drop] 1 drop OT BEDTIME 12/07/20 [History] Multivitamin 1 tab PO DAILY 12/07/20 [History] traMADol [Ultram] 50 mg PO Q8HR PRN 12/07/20 [History] Past Medical History HEENT History: Reports: Allergic Rhinitis, Cataract, Glaucoma Cardiovascular History: Reports: Arrhythmia, Hypertension Other Cardiovascular History: CURRENTLY NOT ON MEDS FOR HYPERTENSION. STATES HAS NOT NEEDED SINCE LOST WT. Respiratory History: Reports: Asthma, COPD Gastrointestinal History: Reports: Chronic Constipation, Colon Polyp, GERD, Other (See Below) Other Gastrointestinal History: ABD PAIN RUQ, DYSPEPSIA, FLATULENCE, CONSTIPATION Genitourinary History: Reports: None PROCESS AUTOMATION ENGINEER History: Reports: Other PROCESS AUTOMATION ENGINEER History: IV PARA IV VAGINAL DELIVERIES Musculoskeletal History: Reports: Arthritis, Back Pain, Chronic, Fracture, Neck Pain, Chronic, Osteoporosis Other Musculoskeletal History: ARTHROPATHY, POLYMYALGIA RHEUMATICA, DJD SHOULDER, CERVICAL DDD, LEFT SHOULDER PAIN. LEFT GREAT TOENAIL SURGERY. Neurological History: Reports: Concussion, Headaches, Chronic, Head Trauma Psychiatric History: Reports: Depression Endocrine/Metabolic History: Reports: Hypothyroidism Hematologic History: Reports: None Immunologic History: Reports: None Oncologic (Cancer) History: Reports: None Dermatologic History: Reports: None - Infectious Disease History Infectious Disease History: Reports: Chicken Pox, Measles, Mumps, Rubella, Shingles - Past Surgical History Head Surgeries/Procedures: Reports: None HEENT Surgical History: Reports: Adenoidectomy, Cataract Surgery, Tonsillectomy Other HEENT Surgeries/Procedures: BILATERAL PHACO IOL, GLAUCOMAS SURGERY ON RIGHT EYE. Cardiovascular Surgical History: Reports: None Respiratory Surgical History: Reports: None GI Surgical History: Reports: Appendectomy, Cholecystectomy, Colonoscopy, EGD Female Surgical History: Reports: Hysterectomy, Oophorectomy Endocrine Surgical History: Reports: None Neurological Surgical History: Reports: None, Lumbar Spine Other Neurological Surgeries/Procedures: STATES HAS HAD INJECTIONS TO SPINE R/T BACK INJURY. 2011 Musculoskeletal Surgical History: Reports: Arthroscopic Procedure, Carpal Tunnel, ORIF, Shoulder Surgery Other Musculoskeletal Surgeries/Procedures:: PATHOLIC FX OF VERTEBRAE, L WRIST FX WITH REPAIR, R ROTATOR CUFF REPAIR, LEFT ANKLE ORIF, LEFT SHOULDER SCOPE, VERTEBROPLASTY, RIGHT TOTAL SHOULDER, L TRIGGER FINGER THUMB RELEASE, Oncologic Surgical History: Reports: None Dermatological Surgical History: Reports: None Social & Family History - Family History Family Medical History: No Pertinent Family History - Tobacco Use Tobacco Use Status *Q: Unknown Ever Used Tobacco - Caffeine Use Caffeine Use: Reports: None - Recreational Drug Use Recreational Drug Use: No ED ROS GENERAL - Review of Systems Review Of Systems: See Below Constitutional: Reports: No Symptoms HEENT: Reports: No Symptoms Respiratory: Reports: No Symptoms Cardiovascular: Reports: No Symptoms Endocrine: Reports: No Symptoms GI/Abdominal: Reports: No Symptoms : Reports: No Symptoms Musculoskeletal: Reports: No Symptoms Skin: Reports: No Symptoms Neurological: Reports: Confusion Psychiatric: Reports: No Symptoms ED EXAM, GENERAL - Physical Exam Exam: See Below Exam Limited By: No Limitations General Appearance: Alert, No Apparent Distress Eye Exam: Bilateral Eye: PERRL Ears: Normal External Exam, Normal Canal Nose: Normal Inspection, Normal Mucosa, No Blood Throat/Mouth: Normal Inspection, Normal Lips, Normal Teeth Head: Atraumatic, Normocephalic Neck: Normal Inspection, Supple, Non-Tender, Full Range of Motion Respiratory/Chest: No Respiratory Distress, Lungs Clear, Normal Breath Sounds, No Accessory Muscle Use, Chest Non-Tender Cardiovascular: Normal Peripheral Pulses, Regular Rate, Rhythm, No Edema, No Gallop GI/Abdominal: Normal Bowel Sounds, Soft, Non-Tender, No Organomegaly Extremities: Normal Inspection, Normal Range of Motion, Non-Tender Course - Vital Signs Text/Narrative:: Lab result was reviewed and discussed with patient Last Recorded V/S: Last Vital Signs Temp 36.4 C 12/07/20 09:38 Pulse 110 H 12/07/20 09:38 Resp 16 12/07/20 09:38 BP 140/86 12/07/20 09:38 Pulse Ox 97 12/07/20 09:38 - Orders/Labs/Meds Labs: Laboratory Tests 12/07/20 12/07/20 12/07/20 Range/Units 10:10 10:10 10:10 WBC 3.0 (3.0-10.3) x10-3/uL RBC 3.52 L (3.60-5.20) x10(6)uL Hgb 11.6 (11.4-15.5) g/dL Hct 34.0 L (34.2-48.2) % MCV 96.5 (76.7-100.5) fL MCH 33.0 (23.9-33.9) pg MCHC 34.1 (31.9-34.8) g/dL RDW 13.9 (12.3-16.5) % Plt Count 156 (151-488) x10(3)uL MPV 8.5 (7.1-12.4) fL Neut % (Auto) 69.0 (30.8-76.2) % Lymph % (Auto) 14.3 L (18.4-52.1) % Banner % (Auto) 13.9 (4.4-15.7) % Eos % (Auto) 1.5 (0.6-8.1) % Baso % (Auto) 1.3 (0.2-1.5) % Neut # (Auto) 2.1 (1.5-6.3) x10-3/uL Lymph # (Auto) 0.4 L (1.0-4.4) x10-3/uL Banner # (Auto) 0.4 (0.3-1.0) x10-3/uL Eos # (Auto) 0.0 (0.0-0.8) x10-3/uL Baso # (Auto) 0.0 (0.0-0.1) x10-3/uL Sodium 134 L (135-145) mmol/L Potassium 4.8 (3.5-5.3) mmol/L Chloride 98 L (100-110) mmol/L Carbon Dioxide 27 (21-32) mmol/L BUN 17 (7-18) mg/dL Creatinine 1.2 H (0.55-1.02) mg/dL Est Cr Clr Drug Dosing 25.07 mL/min Estimated GFR (MDRD) 43 L (>60) BUN/Creatinine Ratio 14.2 (9-20) Glucose 114 (80-116) mg/dL Calcium 8.5 L (8.6-10.2) mg/dL Total Bilirubin 0.7 (0.1-1.3) mg/dL AST 71 H D (5-25) IU/L ALT 64 H D (12-36) U/L Alkaline Phosphatase 258 H (56-112) IU/L Troponin I 11.5 (4.0-60.3) pg/mL Total Protein 6.8 (6.0-8.0) g/dL Albumin 2.9 L (3.2-4.6) g/dL Globulin 3.9 g/dL Albumin/Globulin Ratio 0.7 Departure - Departure Time of Disposition: 11:45 Disposition: DC/Tfer to [facility] Condition: Good Clinical Impression: Vasovagal syncope, Chronic hyponatremia Dementia Qualifiers: Dementia type: unspecified type Dementia behavioral disturbance: without behavioral disturbance Qualified Code(s): F03.90 - Unspecified dementia without behavioral disturbance - Discharge Information Instructions: Hyponatremia, [id number], Dementia, [id number], Syncope, [id number] Referrals: Mariama Eli INSTRUCTIONAL SUPPORT SPECIALIST [Primary Care Provider] - Forms: ED Department Discharge Additional Instructions: Please read discharge instructions on vasovagal syncope Follow up as needed Sepsis Event Note (ED) - Evaluation Sepsis Screening Result: No Definite Risk
--- NOTE | 2020-12-08 00:13 | PCM.EKG ---
#1 Interpretation EKG Date: 12/07/20 Time: 09:40 Rhythm: Other (AV dual paced rhythm) Rate (Beats/Min): 103 [place]: Normal P-Wave: Present QRS: Normal ST-T: Normal QT: Normal LA/PQ Interval: 122 Comparison: NA - No Prior EKG EKG Interpretation Comments: Pacemaker rhythm
== END 2020-12-07 11:54 ==
LOC: FB.ED 09:38
DX: R55 Syncope and collapse (principal); F03.90 Unspecified dementia, unspecified severity, without behavioral disturbance, psychotic disturbance, mood disturbance, and anxiety; E87.1 Hypo-osmolality and hyponatremia; I10 Essential (primary) hypertension; J44.9 Chronic obstructive pulmonary disease, unspecified; K21.9 Gastro-esophageal reflux disease without esophagitis; M19.90 Unspecified osteoarthritis, unspecified site; E03.9 Hypothyroidism, unspecified; Z88.8 Allergy status to other drugs, medicaments and biological substances; Z91.040 Latex allergy status; Z88.0 Allergy status to penicillin; Z91.048 Other nonmedicinal substance allergy status; Z79.01 Long term (current) use of anticoagulants; Z79.899 Other long term (current) drug therapy
CPT/HCPCS: 36415; 80053; 84484; 85025; 99285

== ENCOUNTER 2021-11-17 07:20 | Observation (INO) | payer MEDICARE, OTHER ==
[2021-11-17] MEDS ORDERED: hydrALAZINE 20 MG/ML SDV IVPUSH ONE (07:59)
[2021-11-17] MEDS ORDERED: Acetaminophen 325 MG Tab PO ONE (08:15)
[2021-11-17 08:41] LABS: ESTIMATED GFR 63 mL/min (>60)
[2021-11-17] MEDS ORDERED: traMADol 50 MG Tab PO SCH (11:30)
[2021-11-17] MEDS ORDERED: Acetaminophen 325 MG Tab PO PRN (11:55)
[2021-11-17] MEDS ORDERED: Hydrochlorothiazide/Lisinopril 12.5-10 MG Tab PO SCH (12:00)
[2021-11-17] MEDS ORDERED: ACETAMINOPHEN 500 MG PO SCH (12:45)
[2021-11-17] MEDS ORDERED: A VITE PO SCH (12:45)
[2021-11-17] MEDS ORDERED: AMIODARONE 200 MG PO SCH (12:45)
[2021-11-17] MEDS ORDERED: LORazepam 0.5 MG Tab PO PRN (14:34)
[2021-11-17 18:35] VITALS: BP 142/69; PULSE 66
[2021-11-17] MEDS ORDERED: RIVAROXABAN 15 MG PO SCH (21:00)
[2021-11-17] MEDS ORDERED: EYE EYERT SCH (21:00)
[2021-11-17] MEDS ORDERED: LATANOPROST 0.005% EYERT SCH (21:00)
[2021-11-17] MEDS ORDERED: Famotidine 20 MG Tab *PT OWN MED PO SCH (21:00)
[2021-11-17] MEDS ORDERED: ATORVASTATIN 80 MG PO SCH (21:00)
[2021-11-18] MEDS ORDERED: Hydrochlorothiazide/Lisinopril 12.5-10 MG Tab PO SCH (09:00)
[2021-11-22 09:12] LABS: CMV QUANT DNA PCR (PLASMA) Negative (Negative)
== END 2021-11-17 16:35 ==
LOC: FB.ED 07:20 → FB.MS 09:47
PROVIDERS: ADMIT Family Medicine; ATTEND Family Medicine
DX: D72.819 Decreased white blood cell count, unspecified (principal); I16.0 Hypertensive urgency; F03.90 Unspecified dementia, unspecified severity, without behavioral disturbance, psychotic disturbance, mood disturbance, and anxiety; K21.9 Gastro-esophageal reflux disease without esophagitis; J44.9 Chronic obstructive pulmonary disease, unspecified; I10 Essential (primary) hypertension; E03.9 Hypothyroidism, unspecified; Z98.890 Other specified postprocedural states; Z90.49 Acquired absence of other specified parts of digestive tract; I48.11 Longstanding persistent atrial fibrillation; Z20.822 Contact with and (suspected) exposure to COVID-19; Z88.8 Allergy status to other drugs, medicaments and biological substances; Z88.0 Allergy status to penicillin; Z79.899 Other long term (current) drug therapy; Z91.040 Latex allergy status; Z79.890 Hormone replacement therapy
CPT/HCPCS: 36415; 71046; 80053; 81001; 84484; 85025; 87040; 87497; 93005; 96374; 99285; A9270; G0378; J0360; U0002; 93010; 99284

== ENCOUNTER 2021-12-05 01:58 | Emergency (ER) | payer MEDICARE, OTHER ==
[2021-12-05] MEDS ORDERED: hydrALAZINE 20 MG/ML SDV IVPUSH STA (02:32)
[2021-12-05] MEDS: Sodium Chloride 0.9% 10 ML Syringe FLUSH PRN ×2 (03:29→04:43)
[2021-12-05] MEDS ORDERED: Sodium Chloride 0.9% 1,000 ML IV SCH ×2 (05:00→20:15)
[2021-12-05] MEDS ORDERED: Ondansetron 4 MG/2 ML SDV IV PRN (20:04)
[2021-12-05] MEDS ORDERED: Magnesium Hydroxide 400 MG/5 ML Susp 30 ML Cup PO PRN (20:08)
[2021-12-05] MEDS ORDERED: Sodium Chloride 0.9% 10 ML Syringe FLUSH PRN (20:08)
[2021-12-05] MEDS ORDERED: Loperamide 2 MG Cap PO PRN (20:08)
[2021-12-05] MEDS ORDERED: guaiFENesin 100 MG/5 ML Soln 5 ML UD Cup PO PRN (20:08)
[2021-12-05] MEDS ORDERED: traMADol 50 MG Tab PO PRN (20:08)
[2021-12-05] MEDS ORDERED: Acetaminophen 325 MG Tab PO PRN (20:08)
[2021-12-05] MEDS ORDERED: Bisacodyl 10 MG Supp RECTAL PRN (20:08)
[2021-12-05] MEDS ORDERED: RIVAROXABAN 15 MG PO SCH (21:00)
[2021-12-05] MEDS ORDERED: Famotidine 20 MG Tab *PTOM PO SCH (21:00)
[2021-12-05] MEDS ORDERED: atorvaSTATin 40 MG Tab PO SCH (21:00)
[2021-12-05] MEDS ORDERED: Latanoprost 0.005% Ophth Soln 2.5 ML Bottle EYERT SCH (22:00)
[2021-12-05] MEDS: traMADol 50 MG Tab PO SCH (22:15)
[2021-12-05] MEDS: Carbamide Peroxide 6.5% Otic Soln 15 ML Bottle EARBOTH SCH (22:15)
[2021-12-05] MEDS: Acetaminophen 500 MG Tab PO SCH (22:16)
[2021-12-06] MEDS ORDERED: Levothyroxine 75 MCG Tab *PTOM PO SCH (07:30)
[2021-12-06] MEDS ORDERED: Amiodarone 200 MG Tab PO SCH (09:00)
[2021-12-06] MEDS ORDERED: Multivitamins with Iron/Calcium/Folic Acid/Minerals Tab PO SCH (09:00)
[2021-12-06] MEDS ORDERED: Multivitamin Tab PO SCH (10:00)
[2021-12-06] MEDS ORDERED: Magnesium Hydroxide 400 MG/5 ML Susp 30 ML Cup PO PRN (10:00)
[2021-12-06] MEDS ORDERED: Aluminum Hydroxide/Magnesium Hydroxide Susp 30 ML Cup PO PRN (10:00)
[2021-12-06] MEDS: Acetaminophen 500 MG Tab PO SCH (11:31)
[2021-12-06] MEDS: Carbamide Peroxide 6.5% Otic Soln 15 ML Bottle EARBOTH SCH (11:34)
[2021-12-06] MEDS: traMADol 50 MG Tab PO SCH (11:38)
[2021-12-06 13:39] VITALS: BP 151/61; PULSE 75
[2021-12-06] MEDS ORDERED: ATORVASTATIN 80MG PO SCH (21:00)
== END 2021-12-05 06:35 | disposition home or self-care (01) ==
LOC: FB.ED 01:58 → UNDOADMOB 19:43 → FB.MS 19:43 → UNDOADMOB 20:04 → UNDODISOB 12-06 14:07
DX: S09.90XA Unspecified injury of head, initial encounter (principal); I16.9 Hypertensive crisis, unspecified; E86.0 Dehydration; I95.9 Hypotension, unspecified; J44.9 Chronic obstructive pulmonary disease, unspecified; Z79.899 Other long term (current) drug therapy; Z88.0 Allergy status to penicillin; Z88.8 Allergy status to other drugs, medicaments and biological substances; W01.0XXA Fall on same level from slipping, tripping and stumbling without subsequent striking against object, initial encounter
CPT/HCPCS: 70450; A9270; J0360; J2405; J3490; J7030; 36415; 80053; 81001; 84484; 85025; 85610; 85730

== ENCOUNTER 2021-12-05 09:46 | Observation (INO) | payer MEDICARE, OTHER ==
[2021-12-05 03:13] LABS: ESTIMATED GFR 49 mL/min (>60)
[~2021-12-05 09:46] MED LIST: Sodium Chloride 0.9% 1,000 ML IV ONE
[2021-12-05] MEDS ORDERED: Ondansetron 4 MG/2 ML SDV IVPUSH ONE (20:04)
[2021-12-05] MEDS ORDERED: Sodium Chloride 0.9% 1,000 ML IV ONE (20:15)
[2021-12-05] MEDS ORDERED: Rivaroxaban 15 MG Tab PO ONE (22:15)
[2021-12-05] MEDS ORDERED: traMADol 50 MG Tab PO ONE (22:15)
[2021-12-05] MEDS ORDERED: atorvaSTATin 40 MG Tab PO ONE (22:15)
[2021-12-05] MEDS ORDERED: Famotidine 20 MG Tab PO ONE (22:16)
[2021-12-05] MEDS ORDERED: Acetaminophen 500 MG Tab PO ONE (22:16)
[2021-12-05] MEDS ORDERED: Latanoprost 0.005% Ophth Soln 2.5 ML Bottle EYEBOTH ONE (23:13)
[2021-12-06] MEDS ORDERED: Levothyroxine 75 MCG Tab PO ONE (06:33)
[2021-12-06 06:54] LABS: ESTIMATED GFR 63 mL/min (>60)
[2021-12-06 08:13] VITALS: BP 151/61; PULSE 75
[2021-12-06] MEDS ORDERED: Acetaminophen 500 MG Tab PO ONE (11:31)
[2021-12-06] MEDS ORDERED: traMADol 50 MG Tab PO ONE (11:38)
== END 2021-12-06 14:07 | disposition home or self-care (01) ==
LOC: FB.MS 17:15 → UNDOADMOB 17:15 → FB.MS 19:43 → UNDOADMOB 20:04
PROVIDERS: ADMIT Family Medicine; ATTEND Family Medicine
DX: S00.83XA Contusion of other part of head, initial encounter (principal); S06.0X9A Concussion with loss of consciousness of unspecified duration, initial encounter; I48.91 Unspecified atrial fibrillation; I25.10 Atherosclerotic heart disease of native coronary artery without angina pectoris; J44.9 Chronic obstructive pulmonary disease, unspecified; I12.9 Hypertensive chronic kidney disease with stage 1 through stage 4 chronic kidney disease, or unspecified chronic kidney disease; I16.9 Hypertensive crisis, unspecified; N18.9 Chronic kidney disease, unspecified; E03.9 Hypothyroidism, unspecified; F03.90 Unspecified dementia, unspecified severity, without behavioral disturbance, psychotic disturbance, mood disturbance, and anxiety; Z88.8 Allergy status to other drugs, medicaments and biological substances; Z91.040 Latex allergy status; Z88.0 Allergy status to penicillin; Z90.49 Acquired absence of other specified parts of digestive tract; Z98.890 Other specified postprocedural states; Z79.899 Other long term (current) drug therapy
CPT/HCPCS: 36415; 80048; 80053; 81001; 84443; 84484; 85025; 85610; 85730; 99217; 99220; A9270-GY; J2405; J7030

== ENCOUNTER 2022-01-03 19:30 | Emergency (ER) | payer MEDICARE, OTHER ==
[2022-01-03 21:14] LABS: ESTIMATED GFR 44 mL/min (>60)
[2022-01-03] MEDS ORDERED: Labetalol 20 MG/4 ML Syringe IVPUSH ONE (22:16)
[2022-01-03] MEDS ORDERED: cloNIDine 0.1 MG Tab PO ONE (22:21)
[2022-01-03] MEDS ORDERED: Ketorolac 30 MG/ML SDV IM ONE (22:21)
[2022-01-03 22:50] VITALS: BP 184/78
[2022-01-04 01:45] VITALS: PULSE 62
== END 2022-01-03 23:00 | disposition home or self-care (01) ==
LOC: FB.ED 19:30
DX: S09.90XA Unspecified injury of head, initial encounter (principal); I25.10 Atherosclerotic heart disease of native coronary artery without angina pectoris; J44.9 Chronic obstructive pulmonary disease, unspecified; I12.9 Hypertensive chronic kidney disease with stage 1 through stage 4 chronic kidney disease, or unspecified chronic kidney disease; N18.9 Chronic kidney disease, unspecified; Z88.8 Allergy status to other drugs, medicaments and biological substances; Z91.040 Latex allergy status; Z88.0 Allergy status to penicillin; Z91.048 Other nonmedicinal substance allergy status; Z79.899 Other long term (current) drug therapy; Z90.49 Acquired absence of other specified parts of digestive tract; Z90.710 Acquired absence of both cervix and uterus; W19.XXXA Unspecified fall, initial encounter
CPT/HCPCS: 36415; 70450; 72125; 72128; 73502; 80053; 84484; 85025; 96372; 99285; A9270; J1885

== ENCOUNTER 2022-01-27 03:38 | Emergency (ER) | payer MEDICARE, OTHER ==
[2022-01-27 04:29] LABS: ESTIMATED GFR 49 mL/min (>60)
[2022-01-27] MEDS: Sodium Chloride 0.9% 1,000 ML IV STA (04:34)
[2022-01-27] MEDS: Ondansetron 4 MG/2 ML SDV IVPUSH ONE (04:34)
[2022-01-27] MEDS: Labetalol 20 MG/4 ML Syringe IVPUSH ONE (05:53)
[2022-01-27] MEDS: Acetaminophen 500 MG Tab PO ONE (05:53)
[2022-01-27] MEDS: HYDROmorphone 2 MG/ML SDV IVPUSH ONE ×2 (06:22→14:47)
[2022-01-27] MEDS: Iopamidol 755 Mg/ML 75 ML Bottle IV ONE (06:43)
[2022-01-27 07:48] VITALS: PULSE 60
[2022-01-27] MEDS: Lidocaine 2% HCl 6 ML Jel MM STA (09:08)
[2022-01-27] MEDS: Sodium Chloride 0.9% 10 ML Syringe FLUSH PRN (14:48)
[2022-01-27] MEDS: Lidocaine 2% HCl 6 ML Jel ONE (15:47)
[2022-01-27] MEDS: Lidocaine 2% Viscous Solution 15 ML UD PO ONE (15:49)
[2022-01-27 19:18] VITALS: BP 114/53
== END 2022-01-27 16:17 ==
LOC: FB.ED 03:38
DX: K56.699 Other intestinal obstruction unspecified as to partial versus complete obstruction (principal); I25.10 Atherosclerotic heart disease of native coronary artery without angina pectoris; J44.9 Chronic obstructive pulmonary disease, unspecified; I12.9 Hypertensive chronic kidney disease with stage 1 through stage 4 chronic kidney disease, or unspecified chronic kidney disease; N18.9 Chronic kidney disease, unspecified; Z88.8 Allergy status to other drugs, medicaments and biological substances; Z91.040 Latex allergy status; Z88.1 Allergy status to other antibiotic agents; Z91.048 Other nonmedicinal substance allergy status; Z79.899 Other long term (current) drug therapy; Z86.16 Personal history of COVID-19; Z90.49 Acquired absence of other specified parts of digestive tract; Z90.710 Acquired absence of both cervix and uterus
CPT/HCPCS: 36415; 74018; 74177; 80053; 81001; 85025; 86140; 96361; 96374; 96375; 96376; 99285; A9270; J1170; J2405; J3490; J7030; Q9967